=== PATIENT | female | born 1950 | race Caucasian/White ===

== ENCOUNTER → 2017-03-06 | Outpatient (CLI) | payer BC | LOC: FIMAGING 13:55 | PROVIDERS: ATTEND Internal Medicine | DX: Z12.31 Encounter for screening mammogram for malignant neoplasm of breast (principal); Z80.3 Family history of malignant neoplasm of breast | CPT/HCPCS: G0202 ==

== ENCOUNTER → 2018-05-17 | Outpatient (CLI) | payer OTHER, BC | LOC: FIMAGING 14:03 | PROVIDERS: ATTEND Internal Medicine | DX: Z12.31 Encounter for screening mammogram for malignant neoplasm of breast (principal) ==

== ENCOUNTER → 2018-05-31 | Outpatient (CLI) | payer OTHER, BC | LOC: FIMAGING 12:33 | PROVIDERS: ATTEND Internal Medicine | DX: N63.21 Unspecified lump in the left breast, upper outer quadrant (principal) ==

== ENCOUNTER → 2018-07-03 | Day surgery (SDC) | payer OTHER, BC ==
[~2018-07-03] MED LIST: BUPIVACAINE 0.5% 30 ML SDV ONE; LIDOCAINE 1% 300 MG/30 ML SDV ONE
== END | disposition home or self-care (01) ==
LOC: FIMAGING 07:25
PROVIDERS: ATTEND Internal Medicine
PROC: 0HBU3ZX Excision of Left Breast, Percutaneous Approach, Diagnostic (ICD-10-PCS; principal; 2018-07-03)
DX: C50.812 Malignant neoplasm of overlapping sites of left female breast (principal)

== ENCOUNTER → 2018-07-23 | Outpatient (CLI) | payer OTHER, BC ==
[~2018-07-23] MED LIST changes: -BUPIVACAINE 0.5% 30 ML SDV ONE; +GADOBUTROL 10 ML VIAL IVP ONE; -LIDOCAINE 1% 300 MG/30 ML SDV ONE
== END ==
LOC: FIMAGING 10:25
PROVIDERS: ATTEND Surgery
DX: C50.412 Malignant neoplasm of upper-outer quadrant of left female breast (principal)
CPT/HCPCS: 0159T; A9585; C8908; 82565-PO

== ENCOUNTER 2018-08-01 06:33 | Day surgery (SDC) | payer OTHER, BC ==
[2018-08-01] MEDS ORDERED: ceFAZolin 2 GM/DEXTROSE 100 ML IV ONE (07:12)
[2018-08-01] MEDS ORDERED: LR 1,000 ML IV ONE (07:12)
[2018-08-01] MEDS ORDERED: LIDOCAINE 1% 2 ML INJ ID PRN (07:12)
[2018-08-01] MEDS ORDERED: LIDOCAINE 1% 300 MG/30 ML SDV ONE ×2 (07:50→10:52)
[2018-08-01] MEDS ORDERED: BUPIVACAINE 0.5% 30 ML SDV ONE (09:21)
--- NOTE | 2018-08-01 10:56 | PDHPUP ---
History & Physical Update H&P update statement: This history and physical update is based on an assessment of the patient which was completed after admission or registration (within 24 hours), but prior to the surgery/procedure. H&P update: H&P reviewed & patient examined, no change in patient's condition since H&P completed H&P changes: pain on r breast. mri reviewed. No abnormalities noted
[2018-08-01] MEDS ORDERED: fentaNYL 100 MCG/2 ML INJ ONE ×2 (11:05→12:08)
--- NOTE | 2018-08-01 11:05 | PDANEPAE ---
ANE Past Medical History - Cardiovascular History Hx Hypertension: No Hx Arrhythmias: No Hx Chest Pain: No Hx Coronary Artery / Peripheral Vascular Disease: No Hx CHF / Valvular Disease: No Hx Palpitations: No Cardiovascular History Comment: INTERMITTENT PVC'S,PAC'S - Pulmonary History Hx COPD: No Hx Asthma/Reactive Airway Disease: No Hx Recent Upper Respiratory Infection: No Hx Oxygen in Use at Home: No Hx Sleep Apnea: Yes Sleep Apnea Screening Result - Last Documented: Positive Pulmonary History Comment: central apnea- USES C-PAP. USES MOUTH GUARD - Neurologic History Hx Cerebrovascular Accident: No Hx Seizures: No Hx Dementia: No - Endocrine History Hx Diabetes: No - Renal History Hx Renal Disorders: Yes Renal History Comment: URGE INCONT USES PESSARY. uti a month ago - Liver History Hx Hepatic Disorders: No - Neurological & Psychiatric Hx Hx Neurological and Psychiatric Disorders: Yes Neurological / Psychiatric History Comment: RARE MIGRAINES - Cancer History Hx Cancer: Yes Cancer History Comment: BREAST - Congenital Disorder History Hx Congenital Disorders: No - GI History Hx Gastrointestinal Disorders: Yes Gastrointestinal History Comment: RECENT THROAT DILATION 2018 - Other Health History Other Health History: OSTEOARTHRITIS. wears glasses - Chronic Pain History Chronic Pain: Yes (OSTEOARTHRITIS) - Surgical History Prior Surgeries: EGD WITH DILATION 2018. RT ANKLE RECONSTRUCTION. TONSILLECTOMY. RT WRIST REMVL GANGLION CYST. LT HAND 5TH FINGER LIGAMENT FINGER NO LONGER CURLS ANE Review of Systems Review of Systems: - Exercise capacity METS (RN): 5 METS ANE Patient History - Allergies Allergies/Adverse Reactions: No Known Allergies Allergy (Verified 07/31/18 11:10) - Home Medications Home Medications: Herbals/Supplements -Info Only PO 07/30/18 [Last Taken 07/21/18] Tylenol PRN 07/30/18 [Last Taken Unknown] - NPO status NPO Since - Liquids (Date): 07/31/18 NPO Since - Liquids (Time): 20:30 NPO Since - Solids (Date): 07/31/18 NPO Since - Solids (Time): 20:30 - Smoking Hx Smoking Status: Former smoker - Family Anes Hx Family Hx Anesthesia Complications: none ANE Labs/Vital Signs - Vital Signs Blood Pressure: 108/62 Heart Rate: 57 Respiratory Rate: 18 O2 Sat (%): 95 Height: 152.4 cm Weight: 66.224 kg ANE Physical Exam - Airway Neck exam: FROM, spinal fusion Mouth exam: normal dental/mouth exam - Pulmonary Pulmonary: no respiratory distress, no rales or rhonchi, clear to auscultation - Cardiovascular Cardiovascular: regular rate and rhythym, no murmur, rub, or gallop - ASA Status ASA Status: II ANE Anesthesia Plan Anesthesia Plan: GA w LMA
[2018-08-01] MEDS ORDERED: PROPOFOL/EMULSION 500 MG/50 ML BOTTLE IV ONE (11:06)
[2018-08-01] MEDS ORDERED: MIDAZOLAM 2 MG/2 ML VIAL ONE (11:14)
[2018-08-01] MEDS ORDERED: ACETAMINOPHEN 500 MG TAB PO PRN (11:28)
[2018-08-01] MEDS ORDERED: fentaNYL 100 MCG/2 ML INJ IVP PRN (11:28)
[2018-08-01] MEDS ORDERED: DIAZEPAM 5 MG/ML 1 ML SYR IVP PRN (11:28)
[2018-08-01] MEDS ORDERED: HYDROCODONE/APAP 5/325 TAB PO PRN (11:28)
[2018-08-01] MEDS ORDERED: ONDANSETRON 4 MG/2 ML VIAL IVP PRN (11:28)
[2018-08-01] MEDS ORDERED: ALBUTEROL 3 ML DEYVIAL IH PRN (11:28)
[2018-08-01] MEDS ORDERED: LR 500 ML IV PRN (11:28)
[2018-08-01] MEDS ORDERED: oxyCODONE IR 5 MG TAB PO PRN (11:28)
[2018-08-01] MEDS ORDERED: DEXAMETHASONE 4 MG/ML VIAL IVP PRN (11:28)
[2018-08-01] MEDS ORDERED: NALOXONE HCL 0.4 MG/ML INJ IVP PRN (11:28)
[2018-08-01] MEDS ORDERED: DEXAMETHASONE 4 MG/ML VIAL ONE (12:09)
[2018-08-01] MEDS ORDERED: ONDANSETRON 4 MG/2 ML VIAL ONE (12:09)
[2018-08-01] MEDS ORDERED: ePHEDrine SULFATE 25 MG/5 ML SYR ONE (12:09)
[2018-08-01] MEDS ORDERED: METOCLOPRAMIDE 10 MG/2 ML VIAL ONE (12:09)
--- NOTE | 2018-08-01 12:35 | POSTOPPROG ---
Post Op Note Date of Operation: 08/01/18 Surgeon: Jeri Alanis Anesthesiologist: errol Anesthesia: GET(General Endotracheal) Pre-op Diagnosis: L breast cancer Post-op Diagnosis: Same Indication: 68 yo with [id number] + breast ca Procedure: R US guided port, L lump L sln Findings: clip within specimen Inf/Abcess present in the surg proc area at time of surgery?: No EBL: Minimal Specimen(s): lump, sln, margins
[2018-08-01 14:44] VITALS: BP 129/75
--- NOTE | 2018-08-02 07:22 | POSTANESTH ---
Post Anesthetic Evaluation Cardiovascular Status: Normal, Stable, Similar to Pre-Op Cond Respiratory Status: Normal, Stable, Similar to Pre-op Cond., Requires Airway Assist Pain Control: Adequate, Prn Tx Ordered Nausea/Vomiting Control: Adequate, Prn Tx Ordered Complications Possibly Related to Anesthesia: None Noted
--- NOTE | 2018-08-03 07:21 | GOP ---
DATE OF OPERATION: 08/01/2018 SURGEON: Jeri Alanis MD ANESTHESIA: General. ANESTHESIOLOGIST: Yanira Trejo MD PREOPERATIVE DIAGNOSIS: Left breast HER2/joon positive breast cancer. POSTOPERATIVE DIAGNOSIS: Left breast HER2/joon positive breast cancer. PROCEDURE PERFORMED: 1. Right ultrasound-guided PowerPort placement. 2. Left needle localized lumpectomy, left sentinel lymph node. FINDINGS: Clip within the specimen. Negative sentinel lymph node. SPECIMENS: Lumpectomy, sentinel lymph node margins. ESTIMATED BLOOD LOSS: Minimal. INDICATIONS: The patient is a 68-year-old woman who was diagnosed with HER2/joon positive breast canc er. She presents for port placement, lumpectomy and sentinel lymph node. DESCRIPTION OF PROCEDURE: The patient was brought into the operating room, placed supine on the tabl e and general anesthesia was administered. Her bilateral neck and chest were prepped and draped in t he usual sterile fashion. I started on her right chest. Infiltrated all sites with 0.5% Marcaine pr ior to making incisions. I used the ultrasound to identify her right internal jugular vein. It was compressible. I accessed it on the first attempt with dark return of blood flow. I threaded the maria de jesus dewire and removed the needle. Placement confirmed with fluoroscopy. I created a pocket to accommod ate the port in the right chest. I tunneled this up to the insertion site. I measured under fluoros copy and cut it to size. Using the Seldinger technique, I placed a dilator and sheath over the wire. I removed the wire and the dilator. I placed the catheter through the sheath and peeled away the s soniya. Placement confirmed with fluoroscopy. The port withdrew blood easily and was flushed with he carlos alberto. The pocket was closed with 3-0 Vicryl followed by 4-0 Monocryl. Dermabond applied. Next, attention was drawn to the left chest. I made an ellipse around the wire and created superior and inferior skin flaps. I dissected down beyond the level of the wire. I inked this green anterior , red superior, yellow medial, blue inferior, orange lateral, black posterior. This was submitted to Radiology. Clip and wire contained within the specimen. I took an additional superior margin inked red, medial margin inked yellow, inferior margin inked blue, lateral margin inked orange and posteri or margin inked black. Hemostasis achieved in the cavity. The cavity was marked with clips. I made an incision beneath the hair-bearing portion on her left axilla. I dissected down through the subcu taneous tissue. I encountered the axillary space. I used the gamma probe to identify the sentinel l ymph nodes. There were 4 lymph nodes that were very close together. I excised these. When I return ed the gamma probe to the axilla it was very quiet. Hemostasis achieved in the cavity. Each wound c losed with 3-0 Vicryl, 4-0 Monocryl. Mastisol, Steri-Strips, and sterile dressings were applied. Michael salazar was awakened in the operating room, extubated, and transferred to the PACU in stable condition. /[id number]/MODL
== END 2018-08-01 14:20 | disposition home or self-care (01) ==
LOC: FSGY 06:33
PROVIDERS: ATTEND Surgery
PROC: 02HV33Z Insertion of Infusion Device into Superior Vena Cava, Percutaneous Approach (ICD-10-PCS; principal; 2018-08-01 11:30)
PROC: 0HBU0ZZ Excision of Left Breast, Open Approach (ICD-10-PCS; principal; 2018-08-01 11:30)
PROC: 07B60ZX Excision of Left Axillary Lymphatic, Open Approach, Diagnostic (ICD-10-PCS; principal; 2018-08-01 11:30)
DX: C50.812 Malignant neoplasm of overlapping sites of left female breast (principal); Z15.01 Genetic susceptibility to malignant neoplasm of breast
CPT/HCPCS: 19302; 36561; 71045; 76001; 76098; 78195; A9520; C1788; J0690; J1100; J1642; J2250; J2405; J2704; J2765; J3010

== ENCOUNTER → 2018-08-22 | Outpatient (CLI) | payer OTHER, BC | LOC: BHFA 15:30 | PROVIDERS: ATTEND Internal Medicine Cardiovascular Disease | DX: Z51.11 Encounter for antineoplastic chemotherapy (principal) ==

== ENCOUNTER → 2018-10-16 | Outpatient (CLI) | payer OTHER, BC | LOC: FLAB 13:27 | PROVIDERS: ATTEND Physician Assistant | DX: R50.9 Fever, unspecified (principal); R05 Cough; J02.9 Acute pharyngitis, unspecified; C50.412 Malignant neoplasm of upper-outer quadrant of left female breast ==

== ENCOUNTER → 2018-11-12 | Outpatient (CLI) | payer OTHER, BC | LOC: BHFA 09:15 | PROVIDERS: ATTEND Internal Medicine Cardiovascular Disease | DX: Z51.11 Encounter for antineoplastic chemotherapy (principal) ==